=== PATIENT | female | born 1965 | race Caucasian/White ===

== ENCOUNTER → 2017-01-12 | Outpatient (CLI) | payer BC ==
[~2017-01-12] MED LIST: LOSA100T6 PO; [UNRECOGNIZED DRUG - CODE] PO
== END | disposition home or self-care (01) ==
LOC: STAR 12:43
PROVIDERS: ATTEND Obstetrics & Gynecology Female Pelvic Medicine and Reconstructive Surgery
DX: Z01.818 Encounter for other preprocedural examination (principal); R10.2 Pelvic and perineal pain; I10 Essential (primary) hypertension
CPT/HCPCS: 36415; 84703

== ENCOUNTER 2017-01-17 13:15 | Observation (INO) | payer BC ==
[~2017-01-17] VITALS: Ht 167.6 cm; Wt 61.8 kg
[~2017-01-17 13:15] MED LIST changes: +BUPIVACAINE/PF 0.25% ONE
[2017-01-17] MEDS ORDERED: LACTATED RINGERS 1,000 ML IV SCH ×2 (13:29→19:00)
[2017-01-17] MEDS ORDERED: ACETAMINOPHEN 500 MG TABLET PO STA (14:14)
[2017-01-17] MEDS ORDERED: SCOPOLAMINE PATCH, 1MG PATCH.TD72 TD STA (14:14)
[2017-01-17] MEDS ORDERED: ACETAMINOPHEN 500 MG TABLET ONE (14:14)
[2017-01-17] MEDS ORDERED: FENTANYL PF 100 MCG/2ML ONE ×2 (16:13→17:27)
[2017-01-17] MEDS ORDERED: CEFAZOLIN 1,000 MG ONE (16:17)
[2017-01-17] MEDS ORDERED: GLYCOPYRROLATE 0.2MG/1ML, 5ML ONE (16:17)
[2017-01-17] MEDS ORDERED: ROCURONIUM 10 MG/ML ONE (16:17)
[2017-01-17] MEDS ORDERED: ONDANSETRON 2MG/ML, 2ML ONE (16:17)
[2017-01-17] MEDS ORDERED: METOCLOPRAMIDE 5 MG/ML, 2ML ONE (16:17)
[2017-01-17] MEDS ORDERED: SUCCINYLCHOLINE 20 MG/ML, 10ML ONE (16:17)
[2017-01-17] MEDS ORDERED: PROPOFOL 10 MG/ML, 20ML ONE (16:17)
[2017-01-17] MEDS ORDERED: PHENYLEPHRINE 10 MG/ML ONE (16:17)
[2017-01-17] MEDS ORDERED: DEXAMETHASONE 4 MG/ML, 1ML ONE (16:17)
[2017-01-17] MEDS ORDERED: OXYTOCIN 10 UNITS/ML, 1ML ONE (16:17)
[2017-01-17] MEDS ORDERED: EPINEPHRINE 1 MG/ML, 1ML INFIL ONE (16:57)
[2017-01-17] MEDS ORDERED: MIDAZOLAM 1 MG/ML, 2ML IV PRN (17:00)
[2017-01-17] MEDS ORDERED: OXYcodone 5 MG/5 ML ORAL.SOL UDC PO PRN (17:00)
[2017-01-17] MEDS ORDERED: hydrALAzine 20 MG/ML, 1ML IV PRN (17:00)
[2017-01-17] MEDS ORDERED: MEPERIDINE/PF 25MG/0.5ML IVPush PRN (17:00)
[2017-01-17] MEDS ORDERED: ONDANSETRON 2MG/ML, 2ML IVPush PRN ×2 (17:00→19:00)
[2017-01-17] MEDS ORDERED: LABETALOL 5MG/ML, 20ML IV PRN (17:00)
[2017-01-17] MEDS ORDERED: HYDROmorphone 1 MG/ML, 1ML IV PRN (17:00)
[2017-01-17] MEDS ORDERED: PROMETHAZINE 25 MG/ML, 1ML IV PRN (17:00)
[2017-01-17] MEDS ORDERED: OXYcodone 5 MG/5 ML ORAL.SOL UDC ONE (17:28)
[2017-01-17] MEDS: FENTANYL PF 100 MCG/2ML IV PRN ×2 (17:34→17:40)
[2017-01-17] MEDS ORDERED: MEPERIDINE/PF 25MG/0.5ML ONE (18:11)
[2017-01-17] MEDS ORDERED: HYDROmorphone 2 MG/ML, 1ML IV PRN (19:00)
[2017-01-17] MEDS ORDERED: OXYcodone/APAP 5/325MG TABLET PO PRN (19:00)
[2017-01-17 20:00] VITALS: BP 139/71
[2017-01-18] MEDS ORDERED: ETHINYL ESTRADIOL HOMEMEDPO SCH (09:00)
[2017-01-18] MEDS ORDERED: FERROUS FUMARATE HOMEMEDPO SCH (09:00)
[2017-01-18] MEDS ORDERED: LOSARTAN 50MG TABLET PO SCH (09:00)
[2017-01-18] MEDS ORDERED: NORETHINDRONE HOMEMEDPO SCH (09:00)
== END 2017-01-17 21:56 | disposition home or self-care (01) ==
LOC: OUT 13:15 → 4NOR 18:27 → OUT 20:23 → 4NOR 20:24
PROVIDERS: ADMIT Obstetrics & Gynecology Female Pelvic Medicine and Reconstructive Surgery; ATTEND Obstetrics & Gynecology Female Pelvic Medicine and Reconstructive Surgery
DX: K37 Unspecified appendicitis (principal); N80.5 Endometriosis of intestine; R10.2 Pelvic and perineal pain; I10 Essential (primary) hypertension; F10.10 Alcohol abuse, uncomplicated; Z83.3 Family history of diabetes mellitus; Z82.49 Family history of ischemic heart disease and other diseases of the circulatory system
CPT/HCPCS: 44970; 88304; 96374; G0378; J0171; J0330; J0690; J1100; J2175; J2370; J2405; J2590; J2704; J2765; J3010; J3490